=== PATIENT | female | born 1960 | race Caucasian/White ===

== ENCOUNTER 2019-03-11 06:05 | Day surgery (SDC) | payer OTHER ==
[~2019-03-11] VITALS: Ht 160 cm; Wt 88.6 kg
[~2019-03-11 06:05] MED LIST: ACET325 PO; GLUCOSAMINE CH1 EAC3 PO; IBUP400 PO; QUIN B STRONG1 EACH PO
--- NOTE | 2019-03-11 06:31 | NUR ---
PT ADMITTED TO [facility]. AGREES WITH PLANNED SURGERY. MEDS, ALLERGIES AND HX REVIEWED. LUNG SOUNDS CLEAR.
--- NOTE | 2019-03-11 08:44 | NUR ---
03/11/19 0844 Shania Pierce A PATIENT VOIDED PRIOR TO COMING INTO OR.
--- NOTE | 2019-03-11 18:56 | NUR ---
SHIFT SUMMARY PT EATING SMALL AMTS. DRINKING WELL. BEEN UP TO CHAIR. PT VOIDING. PAIN DOING MUCH BETTER THIS AFTERNOON/EVENING. PT BEEN ASSISTED WITH ADL'S PRN. PT FAMILY BEEN IN AND OUT OF ROOM.
--- NOTE | 2019-03-12 04:22 | NUR ---
SHIFT SUMMARY: PT POD#1 FOR LT TKA. MAMADOU WRAP AND POLAR PACK IN PLACE. GIVEN 5MG OXY AND SCHED TORADOL+TYLENOL FOR PAIN. PT REPORTS GOOD PAIN CONTROL. DENIES N/V. PAU PO. SALINE LOCKED EXCEPT FOR IV ABX. OOB TO BATHROOM SEVERAL TIMES W/FWW+GB. PT PAU ACTIVITY WELL. VOIDING. NO CONCERNS AT THIS TIME.
[2019-03-12 05:01] LABS: BASOPHILS ABSOLUTE AUTO 0.02 K/mm3 (0.00-0.23); BASOPHILS PERCENT AUTO 0 % (0-2); EOSINOPHILS ABSOLUTE AUTO 0.01 K/mm3 (0.00-0.68); EOSINOPHILS PERCENT AUTO 0 % (0-6); Hematocrit 36.9 % (33.0-51.0); Hemoglobin 11.8 g/dL (11.5-16.0); IMMATURE GRAN PERCENT AUTO 1 % (0-1); LYMPHOCYTES ABSOLUTE AUTO 2.25 K/mm3 (0.84-5.20); LYMPHOCYTES PERCENT AUTO 12 % (21-46); MONOCYTES ABSOLUTE AUTO 1.63 K/mm3 (0.16-1.47); MONOCYTES PERCENT AUTO 9 % (4-13); Mean Corpuscular HGB 29.1 pg (26.0-34.0); Mean Corpuscular Volume 91 fL (80-100); Mean Platelet Volume 9.7 fL (9.1-12.4); NEUTROPHILS ABSOLUTE AUTO 14.25 K/mm3 (1.96-9.15); NEUTROPHILS PERCENT AUTO 78 % (41-73); Platelet Count 221 K/mm3 (150-400); RDW Coefficient Variation 13.2 % (11.7-14.2); RDW Standard Deviation 44.7 fL (35.1-46.3); Red Blood Cell Count 4.05 M/mm3 (3.80-5.20); White Blood Cell Count 18.26 K/mm3 (4.00-11.30)
[2019-03-12 05:59] LABS: Magnesium, Blood 2.1 mg/dL (1.6-2.4)
[2019-03-12 06:00] LABS: Anion Gap 7 mmol/L (6-16); Blood Urea Nitrogen 11 mg/dL (8-24); Bun/Creatinine Ratio 12.5 (12.0-20.0); CO2, Blood 27 mmol/L (21-32); Calcium, Blood 9.2 mg/dL (8.5-10.1); Chloride, Blood 106 mmol/L (98-108); Creatinine, Blood 0.88 mg/dL (0.40-1.00); Glomerular Filtration Rate >60 (60-); Glucose, Blood 110 mg/dL (70-99); Potassium, Blood 4.5 mmol/L (3.5-5.5); Sodium, Blood 140 mmol/L (136-145)
--- NOTE | 2019-03-12 07:20 | NUR ---
DR SMITH HERE AND CHANGED DRESSING.
[2019-03-12] MEDS ORDERED: ASPI325EC PO (11:16)
[2019-03-12] MEDS ORDERED: OXYC5 PO (11:17)
--- NOTE | 2019-03-12 11:29 | NUR ---
DISCHARGE: PT EATING AND DRINKING WELL. PT REPORTS PAIN TOLERABLE ON PO PAIN MEDICATION. PT VOIDING. PT/FAMILY REPORTS UNDERSTANDING OF DISCHARGE INSTRUCTIONS INCLUDING DRESSING CHANGES AND ICE MACHINE. PT REPORTS HAVING WALKER AND PAIN MEDICATION. PT BEEN CLEARED BY THERAPY TO GO HOME.
== END 2019-03-12 11:29 | disposition home or self-care (01) ==
LOC: ORSCMMR 06:05 → ORD 07:30 → ORSCMMR 07:30 → SURS 12:04 → ORSCMMR 03-12 11:29
PROVIDERS: Orthopaedic Surgery
PROC: 0SRD0J9 Replacement of Left Knee Joint with Synthetic Substitute, Cemented, Open Approach (ICD-10-PCS; principal; 2019-03-11 07:30)
PROC: 8E0YXBZ Computer Assisted Procedure of Lower Extremity (ICD-10-PCS; principal; 2019-03-11 07:30)
DX: M17.12 Unilateral primary osteoarthritis, left knee (principal); E66.9 Obesity, unspecified; Z68.34 Body mass index [BMI] 34.0-34.9, adult
CPT/HCPCS: 36415; 73560-LT; 80048; 83735; 85025; 88300; 97110; 97116; 97162; 97530; C1713; C1776; J0171; J0690; J0735; J1100; J1885; J2250; J2370; J2405; J2704; J2795; J3010; J7120

== ENCOUNTER → 2022-01-24 | Outpatient (CLI) | payer OTHER ==
[~2022-01-24] MED LIST changes: +ASPI325EC PO; +OXYC5 PO
[2022-01-25 13:11] LABS: HPV 16 Negative (Negative); HPV 18 Negative (Negative); HPV OTHER HR TYPES Negative (Negative)
== END | disposition home or self-care (01) ==
LOC: LAB SHORT 12:21
PROVIDERS: Advanced Practice Midwife
DX: Z01.419 Encounter for gynecological examination (general) (routine) without abnormal findings (principal)
CPT/HCPCS: 87624; G0123